=== PATIENT | male | born 1985 | race Caucasian/White ===

== ENCOUNTER 2023-09-24 17:11 | Emergency (ER) | payer SELFPAY ==
[2023-09-24 17:13] VITALS: BP 146/90
[2023-09-24 17:27] LABS: % Basophils 0.4 % (0-2); % Eosinophils 1.1 % (0-6); % Immature Granulocytes 0.4 % (0-0.5); % Lymphocytes 13.8 % (20.5-51.1); % Monocytes 6.4 % (1.7-9.3); % Neutrophils 77.9 % (42.2-75.2); Absolute Basophils 0.1 10^3/uL (0-0.2); Absolute Eosinophils 0.2 10^3/uL (0-0.7); Absolute Immature Granulocytes 0.1 10^3/uL (0-0.05); Absolute Lymphocytes 1.9 10^3/uL (1.2-3.4); Absolute Monocytes 0.9 10^3/uL (0.1-0.6); Absolute Neutrophils 10.9 10^3/uL (1.4-6.5); Hemoglobin 15.1 g/dL (13.0-18.0); Mean Corp Hgb Conc. 35.1 g/dL (33.0-37.0); Mean Corpuscular Hgb 28.2 pg (27.0-31.0); Mean Corpuscular Volume 80.2 fL (80.0-94.0); Mean Platelet Volume 8.9 fL (7.4-10.4); Nucleated Red Blood Cells % 0 % (-); Platelet Count 332 10^3/uL (130-400); Red Blood Cell Count 5.36 10^6/uL (4.70-6.10); Red Cell Dist. Width 13.3 % (11.5-14.5); White Blood Cell Count 13.9 10^3/uL (4.8-10.8)
[2023-09-24 17:48] LABS: ALT (SGPT) 52 U/L (0-50); AST (SGOT) 42 U/L (17-59); Albumin 4.9 g/dl (3.5-5.0); Alkaline Phosphatase 85 U/L (38-126); Blood Urea Nitrogen 18 mg/dl (9-20); Calcium 10.4 mg/dl (8.4-10.2); Carbon Dioxide 24 mmol/L (22-30); Chloride 103 mmol/L (98-107); Glucose 88 mg/dl (70-99); Sodium 140 mmol/L (135-145); Total Bilirubin 1.2 mg/dl (0.2-1.3); eGFR > 60.00
--- NOTE | 2023-09-24 18:42 | ED.SKININJ ---
HPI-Injury
General
Chief Complaint: Skin Problem
Source: patient
Exam Limitations: none
Time Seen by Provider: 09/24/23 18:33
History of Present Illness-Injury
Initial Injury comments:
38-year-old male otherwise healthy presents with pain redness and swelling to the left shoulder area. He felt a stinging sensation earlier this morning in this area and since then has become more red. He developed chills throughout the day as well
as achiness. No other complaints at this time
Phy Exam
Physical Exam
Physical Exam:
General: Well-appearing male no acute respiratory distress
HEENT: Normocephalic neck is supple no adenopathy
Skin: Erythema with central eschar. Eschar measures about 0.5 cm. No underlying fluctuance. No drainage. This is slightly tender. Diameter of erythema is about 8 cm.
Musculoskeletal exam no nuchal rigidity or meningeal signs
Course
Orders/Labs/Results
Orders:
Orders
09/24/23 17:21
CMP [Comprehensive Metabolic Panel] Urgent
Complete Blood Count/With Diff Urgent
09/24/23 18:38
Doxycycline [Vibramycin] 100 mg PO NOW STA
Abnormal Lab Results
09/24/23
17:21
WBC 13.9 H 10^3/uL
(4.8-10.8)
Abs Immat Gran (auto) 0.1 H 10^3/uL
(0-0.05)
Absolute Neuts (auto) 10.9 H 10^3/uL
(1.4-6.5)
Absolute Monos (auto) 0.9 H 10^3/uL
(0.1-0.6)
Neutrophils % 77.9 H %
(42.2-75.2)
Lymphocytes % 13.8 L %
(20.5-51.1)
Calcium 10.4 H mg/dl
(8.4-10.2)
ALT 52 H U/L
(0-50)
09/24/23 17:21
09/24/23 17:21
Vital Signs
Initial and Last Documented VS:
Initial Vital Signs
Temp Pulse Resp BP Pulse Ox
98.1 F 100 16 146/90 99
09/24/23 17:13 09/24/23 17:13 09/24/23 17:13 09/24/23 17:13 09/24/23 17:13
Last Documented Vital Signs
Temp Pulse Resp BP Pulse Ox
98.1 F 100 16 146/90 99
09/24/23 17:13 09/24/23 17:13 09/24/23 17:13 09/24/23 17:13 09/24/23 17:13
MDM/Problems Addressed
Differential Diagnosis Includes:
Area of induration and erythema to the left upper back. No palpable fluid collection that would suggest an abscess. Consider cellulitis versus insect bite. Patient overall looks nontoxic no fever here. Will cover with doxycycline. Recommended
protection from the sun. Return precautions were given.
*Critical Care Note
Total Time (30-74mins, 75-104mins- exclusive of procedures): Not Applicable
ED Attending Note
-
Portions of this chart may have been created with voice recognition software.� Occasional wrong word or��sound alike� substitutions may have occurred due to the inherent limitations of voice recognition software.
Discharge Plan
Departure
Patient Disposition: Home (Routine Discharge)
Date of Disposition: 09/24/23
Time of Disposition: 18:45
Patient with high blood pressure during this ER visit?: No
Discharge Problem:
Insect bite, Cellulitis
Instructions: Cellulitis (Skin Infection), Adult (DC)
Prescriptions:
New
doxycycline hyclate 100 mg capsule
100 mg PO BID Qty: 14 0RF
Referrals:
NONE,* [Family Provider] -
Activity Restrictions/Additional Instructions:
Take antibiotics as directed. Please return here for increasing redness swelling pain onset of fever or other concerning finding. Keep yourself protected from the sun while on the antibiotic.
Interventions
Interventions:
*General Assessment Last Done: 09/24/23 17:13
*ED COVID-19 Vaccine History Last Done: 09/24/23 17:13
Discharge Date and Time
Print Language: DIVEHI
[2023-09-24] MEDS: VIBRAMYCIN 100 MG PO (18:57)
== END 2023-09-24 19:03 | disposition home or self-care (01) ==
LOC: EMR 17:11
PROVIDERS: Emergency Medicine; EMERGENCY PHYSICIAN Emergency Medicine
DX: L03.114 Cellulitis of left upper limb (principal); S40.262A Insect bite (nonvenomous) of left shoulder, initial encounter; W57.XXXA Bitten or stung by nonvenomous insect and other nonvenomous arthropods, initial encounter
CPT/HCPCS: 99283; 80053; 85025

== ENCOUNTER 2025-03-03 16:58 | Inpatient (IN) | payer OTHER, SELFPAY ==
[2025-03-03 11:57] VITALS: BP 141/78
[2025-03-03 12:12] VITALS: BMI 38.6
[2025-03-03 12:19] VITALS: BMI 36.8
--- NOTE | 2025-03-03 12:38 | ED.SKININJ ---
HPI-Injury
<Viviana Khoury MICA SPLITTER - Last Filed: 03/03/25 17:35>
General
Chief Complaint: Skin Problem
Source: patient
Exam Limitations: none
Time Seen by Provider: 03/03/25 12:16
Nursing documentation reviewed up to this point in time: agreed with
History of Present Illness-Injury
Initial Injury comments:
39-year-old male being treated with IV vancomycin and ceftriaxone 1 g twice daily at the [facility] for the past 4 days presents with worsening wound R medial mid calf. States he also had fever 102 past two days and has been given Tylenol
and ibuprofen for fevers. Denies n/v. States burning in throat and like indigestion points up and down mid chest started 2 days ago.
Past History
<Viviana Khoury, MICA SPLITTER - Last Filed: 03/03/25 17:35>
Past History
ED Past Medical History: Other (remote PE)
ED Past Surgical History: Orthopedic
Review of Systems
<Viviana Khoury, MICA SPLITTER - Last Filed: 03/03/25 17:35>
Review of Systems
Allergies reviewed?: Yes
All Other Systems: ROS reviewed and negative except as documented in HPI and ROS
Constitutional: Reports fever and chills
Respiratory: Denies trouble breathing
Cardiac: Reports chest pain ('burning' pointing up and down mid chest)
ABD/GI: Denies abdominal pain, nausea, vomiting or diarrhea
Skin: Reports other (worsening wound R lower extremitiy)
Phy Exam
<Viviana Khoury, MICA SPLITTER - Last Filed: 03/03/25 17:35>
Physical Exam
Physical Exam:
GENERAL: No acute distress. A&Ox3.
CONSTITUTIONAL: Afebrile.
EYES: clear, conjunctivae normal
ENMT: moist mucus membranes, Pharynx nl
RESPIRATORY: Regular respirations, nonlabored, lungs clear.
CARDIOVASCULAR: Regular rate and rhythm, no murmurs, no rubs.
GI: Soft, nontender, normal BS
MUSCULOSKELETAL: Moves with ease. Well perfused.
SKIN: Warm, dry, pink. 10 x 10 cm reddened area with 2 x 1 cm open wound with yellow eschar in center with dark eschar around the rim
PSYCH: Normal mood and affect. Well kept, interactive and appropriate
NEUROLOGIC: Awake, alert and oriented. No focal neurological deficits
Course
<Viviana Khoury MICA SPLITTER - Last Filed: 03/03/25 17:35>
Orders/Labs/Results
Orders:
Orders
03/03/25 12:38
Complete Blood Count/With Diff Urgent
Comprehensive Metabolic Panel Urgent
Vancomycin Random Urgent
03/03/25 13:10
Electrocardiogram (*1) Urgent
Reason for Study: Other
Other Reason for Exam: Indigestion like pain
EKG- Treatment ONCE
03/03/25 13:11
Lactic Acid Urgent
Wound Culture [Wound/Abscess/Other Culture] Urgent
KARIME Source: Abscess
Specimen Description:
Date Specimen was Collected: 03/03/25
Time Specimen was Collected: 13:08
Comment: R lower leg
03/03/25 13:13
Blood Culture Urgent
KARIME Source: Blood/Venous
Specimen Description:
03/03/25 13:47
US Periph Venous LOWER Ext RT Urgent
Comment:
Reason For Exam: swelling, wound RLE
03/03/25 13:49
Blood Culture Urgent
KARIME Source: Blood/Venous
Specimen Description:
03/03/25 15:29
Ketorolac [Toradol] 15 mg IV NOW STA
03/03/25 16:34
Admit/Transfer Patient As Directed
Co-Sign Provider:
Level of Care: Inpatient admission
Assign to:: Medical/Surgical
Physician / Group: Hospitalist
Transfer to: Medical/Surgical
Diagnosis: Nonhealing wound
Reason for Hospitalization: Nonhealing wound
Expected length of stay greater than two midnights?: Yes
ELOS- Estimated Length of Stay in days: 3
I certify the patient meets the requirements for IP care: Yes
03/03/25 16:35
PRN Pain Medication Management As Directed
May give lesser potent ordered pain med per pt: Yes
preference::
Protocol:: Medication orders for pain may be administered in a
manner that supports deferring to patient preference
when the pt is:
- Requesting an ordered lesser potent pain medication.
Least to most potent pain medications are defined
as: acetaminophen < NSAID < tramadol < opioids
(morphine, oxycodone, hydromorphone).
- Requesting a lesser dose of the same medication IF
ORDERED.
- Requesting a less intrusive route of administration
if both routes are prescribed by the provider (PO <
IV).
03/03/25 16:40
Code Status As Directed
Resuscitation Status: Full Code
Abnormal Lab Results
03/03/25
12:38
Immature Gran % 0.6 H %
(0-0.5)
BUN 5 L mg/dl
(9-20)
03/03/25 12:38
03/03/25 12:38
Vital Signs
Initial and Last Documented VS:
Initial Vital Signs
Temp Pulse Resp BP Pulse Ox
98.2 F 89 16 141/78 98
03/03/25 11:57 03/03/25 11:57 03/03/25 11:57 03/03/25 11:57 03/03/25 11:57
Last Documented Vital Signs
Temp Pulse Resp BP Pulse Ox
98.2 F 76 16 130/71 97
03/03/25 11:57 03/03/25 17:16 03/03/25 17:23 03/03/25 17:16 03/03/25 17:16
Line Repairer consulted with Physician
Line Repairer consulted with physician?: Yes
Name of Physician Consulted: Dr. Michelle
<Shai Michelle MD - Last Filed: 03/03/25 13:50>
Orders/Labs/Results
Orders:
Orders
03/03/25 12:38
Complete Blood Count/With Diff Urgent
Comprehensive Metabolic Panel Urgent
Vancomycin Random Urgent
03/03/25 13:10
Electrocardiogram (*1) Urgent
Reason for Study: Other
Other Reason for Exam: Indigestion like pain
EKG- Treatment ONCE
03/03/25 13:11
Lactic Acid Urgent
Wound Culture [Wound/Abscess/Other Culture] Urgent
KARIME Source: Abscess
Specimen Description:
Date Specimen was Collected: 03/03/25
Time Specimen was Collected: 13:08
Comment: R lower leg
03/03/25 13:13
Blood Culture Urgent
KARIME Source: Blood/Venous
Specimen Description:
03/03/25 13:47
US Periph Venous LOWER Ext RT Urgent
Comment:
Reason For Exam: swelling, wound RLE
03/03/25 13:49
Blood Culture Urgent
KARIME Source: Blood/Venous
Specimen Description:
03/03/25 15:29
Ketorolac [Toradol] 15 mg IV NOW STA
03/03/25 16:34
Admit/Transfer Patient As Directed
Co-Sign Provider:
Level of Care: Inpatient admission
Assign to:: Medical/Surgical
Physician / Group: Hospitalist
Transfer to: Medical/Surgical
Diagnosis: Nonhealing wound
Reason for Hospitalization: Nonhealing wound
Expected length of stay greater than two midnights?: Yes
ELOS- Estimated Length of Stay in days: 3
I certify the patient meets the requirements for IP care: Yes
03/03/25 16:35
PRN Pain Medication Management As Directed
May give lesser potent ordered pain med per pt: Yes
preference::
Protocol:: Medication orders for pain may be administered in a
manner that supports deferring to patient preference
when the pt is:
- Requesting an ordered lesser potent pain medication.
Least to most potent pain medications are defined
as: acetaminophen < NSAID < tramadol < opioids
(morphine, oxycodone, hydromorphone).
- Requesting a lesser dose of the same medication IF
ORDERED.
- Requesting a less intrusive route of administration
if both routes are prescribed by the provider (PO <
IV).
03/03/25 16:40
Code Status As Directed
Resuscitation Status: Full Code
Abnormal Lab Results
03/03/25
12:38
Immature Gran % 0.6 H %
(0-0.5)
BUN 5 L mg/dl
(9-20)
03/03/25 12:38
03/03/25 12:38
Vital Signs
Initial and Last Documented VS:
Initial Vital Signs
Temp Pulse Resp BP Pulse Ox
98.2 F 89 16 141/78 98
03/03/25 11:57 03/03/25 11:57 03/03/25 11:57 03/03/25 11:57 03/03/25 11:57
Last Documented Vital Signs
Temp Pulse Resp BP Pulse Ox
98.2 F 76 16 130/71 97
03/03/25 11:57 03/03/25 17:16 03/03/25 17:23 03/03/25 17:16 03/03/25 17:16
<Viviana Khoury MICA SPLITTER - Last Filed: 03/03/25 17:35>
MDM/Problems Addressed
Differential Diagnosis Includes:
non healing wound, brown recluse spider bite, antibiotic resistant infection
MDM/Problems Addressed:
39-year-old male being treated with IV vancomycin and ceftriaxone 1 g twice daily at the [facility] for the past 4 days presents with worsening wound R medial mid calf. States he also had fever 102 past two days and has been given Tylenol
and ibuprofen for fevers. Denies n/v. States burning in throat and like indigestion points up and down mid chest started 2 days ago.
Afebrile, NAD
Pt with non healing, mildly worsening wound RLE
Also with reported fever of 102 for the past 2 days
Wound culture results pending
Blood cultures pending
CBC, CMP normal
Vancomycin random level 9.0 ug/mL
Pt totally non toxic appearing, no lymphangitis, afebrile here. Case discussed with Dr. Michelle who examined pt and agrees with admission.
Dx: Cellulitis, open wound RLE
3:30 p.m.
Ultrasound negative for DVT
Hospitalist notified of admission
<Viviana Khoury MICA SPLITTER - Last Filed: 03/03/25 17:35>
*Pulse Oximetry
SaO2: 98
Oxygen Mode of Delivery: Room air
Patient hypoxic: no
*Critical Care Note
Total Time (30-74mins, 75-104mins- exclusive of procedures): Not Applicable
ED Attending Note
<Viviana Khoury MICA SPLITTER - Last Filed: 03/03/25 17:35>
-
Portions of this chart may have been created with voice recognition software.� Occasional wrong word or��sound alike� substitutions may have occurred due to the inherent limitations of voice recognition software.
<Shai Michelle MD - Last Filed: 03/03/25 13:50>
ED Attending Note
Patient seen and examined by attending physician: Yes
I performed the substantive portion of visit, reviewed & personally made and approve the management plan that is documented in note by myself or NICOLAS.: Yes
ED Attending Note:
39-year-old male ongoing wound to the right lower leg. Has been on IV vancomycin and ceftriaxone no improvement over the last 4 days and in fact patient feels that is getting mildly worse. Some fever there. Does not do IV drugs. No trauma.
On exam patient is nontoxic. Stable vital signs. Warm and dry. Perfusing well. No respiratory distress. Right leg with significant swelling. Erythema and an open necrotic appearing wound to the right medial proximal tib-fib area. Good distal
pulses and color.
Impression cellulitis open wound to the right medial leg. Being treated well as an outpatient but clearly not improving. Warrants inpatient management. Questionable brown recluse bite. Will also get an ultrasound to rule out DVT
Discharge Plan
Departure
Patient Disposition: Admit
Date of Disposition: 03/03/25
Time of Disposition: 13:51
Admit to: Med/Surg
Presentation/result/management discussed w/ accepting MD/DO: Hospitalist
Condition: Fair
Discharge Problem:
Non-healing wound of right lower extremity
Interventions
Interventions:
*Risk Screen - Suicide Last Done: 03/03/25 12:06
*General Assessment Last Done: 03/03/25 12:06
*Neglect/Abuse Screening Last Done: 03/03/25 12:06
*ED- Fall Risk Assessment Last Done: 03/03/25 12:07
*ED COVID-19 Vaccine History Last Done: 03/03/25 12:07
*ED Influenza Vaccine History Last Done: 03/03/25 12:07
ED-Skin Assessment Last Done: 03/03/25 13:55
[2025-03-03 12:50] LABS: Hematocrit 39.7 % (39.0-52.0); Hemoglobin 13.5 g/dL (13.0-18.0); Mean Corp Hgb Conc. 34.0 g/dL (33.0-37.0); Mean Corpuscular Volume 84.5 fL (80.0-94.0); Nucleated Red Blood Cells % 0 % (-); Platelet Count 300 10^3/uL (130-400); Red Cell Dist. Width 12.6 % (11.5-14.5)
[2025-03-03 13:09] LABS: ALT (SGPT) 34 U/L (0-50); AST (SGOT) 24 U/L (17-59); Albumin 4.0 g/dl (3.5-5.0); Alkaline Phosphatase 66 U/L (38-126); Blood Urea Nitrogen 5 mg/dl (9-20); Calcium 9.0 mg/dl (8.4-10.2); Carbon Dioxide 29 mmol/L (22-30); Chloride 106 mmol/L (98-107); Estimated Creatinine Clearance > 125 ml/min; Glucose 88 mg/dl (70-99); Potassium 4.4 mmol/L (3.5-5.1); Sodium 138 mmol/L (135-145); Total Protein 7.2 g/dl (6.3-8.2); eGFR > 60.00
[2025-03-03 13:55] VITALS: BP 114/73
[2025-03-03 15:20] VITALS: BP 128/67
[2025-03-03] MEDS: TORADOL 15 MG IV (15:44)
--- NOTE | 2025-03-03 15:50 | EDRN ---
Central area where it is draining was covered lightly w/ ABD at this time. Pt awaiting to be seen by hospitalist and after seen will better dress area.
--- NOTE | 2025-03-03 16:32 | EDRN ---
Hospitalist (Dr. Champagne Resident MD) in room w/pt at this time.
--- NOTE | 2025-03-03 16:51 | HPS.HSE ---
Addendum entered and electronically signed by Faizan Dahl MD 03/03/25 18:06:
This is an addendum to H&P written by Neha Mims on 03/03/2025. �Patient seen and examined independently with resident.
39-year-old male past medical history of opioid use disorder, constipation, pulmonary embolism x 2, presenting from snf with nonhealing wound 4 days ago right medial side of the doll with pain. �Thinks he was bitten 4 days ago. �Temperature of
102. �He was started on vancomycin/ceftriaxone in the present.
Vital signs unremarkable.
Labs unremarkable. �Venous ultrasound shows no evidence of DVT. �Superficial calf and ankle edema.
Patient with infected right doll wound not improving on vancomycin/ceftriaxone. �Check wound culture, blood cultures. �Change antibiotics to vancomycin/Zosyn. �ID consulted. �Toradol for pain.
Original Note:
Family Physician
-
Family Physician: Facility [facility]. [facility]
Chief Complaint
-
Nonhealing wound
History of Present Illness
39-year-old male with history of opioid use disorder on Suboxone for past 6 months , constipation, PE x 2 presents with nonhealing wound right doll from [facility]. Patient notes that 4 days ago he woke up and saw a bite mary in his right
lower extremity. The wound increased in size, more painful, had a oral temp of 102F. He was treated with IV vancomycin and rocephin, started 2 days ago, in snf without improvement. He reports of having a similar wound on his back a year ago
which was treated with oral antibiotics. He has past history of provoked PE, first in 2014 and the second episode 2020 for which he was on Xarelto. He is no longer on Xarelto since in snf x 6 months. He is on aspirin now.
Medical History
Past Medical History
Past Medical History: Reports Other (Constipation, PE x 2 (2014,2020), opioid use disorder in remission)
Past Surgical History: Reports Other (spine surgery )
Social History
Tobacco: Former Smoker
Alcohol: None
Drug: Former User and Narcotics
Living: Alf
Family History
Family History: Diabetes (dad)
Allergies / Home Medications
Allergies reflects when Allergies were last updated in [employer].
Home Medications with original date entered in [employer]
Allergy/Medication List:
Allergies
Allergy/AdvReac Type Severity Reaction Status Date / Time
No Known Allergies Allergy Verified 03/03/25 11:57
Home Medications
acetaminophen 325 mg tablet 650 mg PO TIDPRN PRN MILD PAIN 03/03/25
aspirin 81 mg chewable tablet 81 mg PO DAILY 03/03/25
bisacodyl 5 mg tablet 10 mg PO DAILYPRN PRN constipation 03/03/25
buprenorphine 300 mg/1.5 mL solution,exten.rel.subcutaneous syringe (Sublocade) 300 mg SC QMONTH opioid use disorder 03/03/25
calcium polycarbophil 625 mg tablet (FiberCon) 625 mg PO BID Constipation 03/03/25
ceftriaxone 1 gram intravenous solution 1 g IV Q12 leg infection 03/03/25
docusate sodium 100 mg capsule (Colace) 100 mg PO BIDPRN PRN constipation 03/03/25
hydroxyzine pamoate 25 mg capsule 25 mg PO TIDPRN PRN anxety 03/03/25
ibuprofen 400 mg tablet 400 mg PO BIDPRN PRN moderate pain 03/03/25
polyethylene glycol 3350 17 gram oral powder packet (Miralax) 17 g PO DAILYPRN PRN CONSTIPATION 03/03/25
vancomycin 1.25 gram intravenous solution 1.25 g IV Q12H leg infection 03/03/25
Review of Systems
-
History Source: Patient
A 12 point ROS was completed and negative except as noted: Yes
Physical Exam
Vital Signs
Vital Signs
Temp Pulse Resp BP Pulse Ox
98.2 F 76 16 128/67 99
03/03/25 11:57 03/03/25 15:20 03/03/25 15:20 03/03/25 15:20 03/03/25 15:20
Physical Exam
General: Comfortable and Conversant
HEENT: NormoCephalic and Anicteric
Respiratory: Clear
Cardiac: S1/S2 and Regular Rhythm
GI: Soft, Non Tender and Non Distended
Musculoskeletal: Edema, Right Lower Extremity
Skin: Warm (2x1cm open wound with yellow eschar in center, darkening around the rim, surrounding mild erythema, swelling, + moderate tender)
Neuro: AO x 3
Hematologic/Lymphatic: No Lymphadenopathy
Psych: Calm
Laboratory Results
-
03/03/25 12:38
03/03/25 12:38
Laboratory Results
Lactic Acid 1.4 mmol/L (0.7-2.0) 03/03/25 13:11
Total Bilirubin 0.4 mg/dl (0.2-1.3) 03/03/25 12:38
AST 24 U/L (17-59) 03/03/25 12:38
ALT 34 U/L (0-50) 03/03/25 12:38
Alkaline Phosphatase 66 U/L (38-126) 03/03/25 12:38
Data Reviewed
-
Ultrasound: Report Reviewed by me and Discussed with Physician
Lab Data: Labs Reviewed by me and Discussed with Physician
Impression/Plan
-
IMPRESSION:
Right doll wound
Right doll cellulitis
History of opioid use disorder in remission
History of constipation
History of pulmonary embolus
PLAN:
Right doll wound
Right doll cellulitis
Afebrile, normal white count
Suspect spider bite vs wasp bite vs scorpion bite ?
Failed IV antibiotics treatment in snf
Start Zosyn, continue vancomycin
IV Toradol, ibuprofen, Tylenol as needed for pain control
Check wound culture
Check blood culture
Consult infectious disease
Wound care
History of opioid disorder in remission
On Suboxone for 6 months
NSAIDs, Tylenol for pain control
Hold aspirin
History of constipation
Continue home bowel regime
History of pulmonary embolism
provoked PE in 2014 and 2020
Not on AC
hold aspirin
Full code
Lovenox
Regular diet
[2025-03-03 17:16] VITALS: BP 130/71
[2025-03-03 17:45] VITALS: BP 143/86
[2025-03-03] MEDS: ZOSYN 50 IV (19:48)
[2025-03-03] MEDS: LOVENOX 40 MG SC (19:52)
--- NOTE | 2025-03-03 20:00 | PHA.VAN.IN ---
Assessment
- Assessment
Renal Function: Appears similar to baseline
Concomitant Antimicrobials: PIPERACILLIN/TAZO
AUC Dosing Plan
- Dosing Variables
Dosing Weight (kg): 133.5
Dosing CrCl (ml/min): 125
Vd coefficient (L/kg): 0.6
- Empiric Dosing
Initial / Loading Dose: VANCOMYCIN 1250 MG IV Q12H prior to admit last dose 03/02 w. Random 9 ~1230
Maintenance Regimen: VANCOMYCIN 1000 MG IV Q8H
Estimated AUC (mcg*h/mL): 365
Estimated Peak (mcg*h/mL): 21.6
Estimated Trough (mcg/ml): 10.1
Estimated Half Life (H): 6.4
Pharmacokinetics Vancomycin I
- -
Patient Age: 39
Patient Sex: Male
Indication: Skin And Soft Tissue
Requesting Provider: Dr Mahi Solomon (Resident)
Height / Weight:
Height 6 ft 3 in
Actual Weight 133.5 kg
Pertinent Past Medical History: Worsening R medial mid calf wound on vanco/ceftriaxone prior to admission.
- Vital Signs / Lab Results
Temp Pulse Resp BP Pulse Ox
97.8 F 77 18 143/86 99
03/03/25 17:45 03/03/25 17:45 03/03/25 17:45 03/03/25 17:45 03/03/25 17:45
Lab Results - Hematology
03/03/25
12:38
WBC 6.3
Lab Results - Chemistry
03/03/25
12:38
BUN 5 L
Creatinine 0.7
Estimated Creat Clear > 125
Albumin 4.0
03/03/25
13:11
Lactic Acid 1.4
Microbiology Results
03/03/25 13:11 Gram Stain - Preliminary
Abscess
[2025-03-03] MEDS: VANCOCIN 200 IV (20:35)
[2025-03-03] MEDS: TYLENOL 650 MG PO (20:42)
[2025-03-03] MEDS: MOTRIN 400 MG PO (22:39)
[2025-03-03 23:27] VITALS: BP 136/84
[2025-03-04] MEDS: ZOSYN 50 IV ×2 (02:57→09:43)
[2025-03-04] MEDS: TYLENOL 650 MG PO (03:38)
[2025-03-04] MEDS: VANCOCIN 200 IV ×3 (05:52→21:35)
[2025-03-04 07:25] VITALS: BP 144/71
[2025-03-04 07:38] LABS: Hematocrit 38.0 % (39.0-52.0); Hemoglobin 12.9 g/dL (13.0-18.0); Mean Corp Hgb Conc. 33.9 g/dL (33.0-37.0); Mean Corpuscular Volume 84.4 fL (80.0-94.0); Nucleated Red Blood Cells % 0 % (-); Platelet Count 300 10^3/uL (130-400); Red Cell Dist. Width 12.6 % (11.5-14.5)
--- NOTE | 2025-03-04 07:49 | PHA.VAN.FU ---
Vancomycin Assessment / Plan
- Assessment
Renal Function: Stable
WBC's are: WNL
In the past 24 hrs, patient has been: Afebrile
Concomitant Antimicrobials: zosyn
- Dosing Plan
Continue: 1000mg q8h
- Monitoring Plan
No level(s) ordered at this time: consider for steady state
- Follow Up
Pharmacy will continue to follow.
Vancomycin Follow UP
- -
Patient Age: 39
Patient Sex: Male
Vancomycin Day #: 2
Indication: Skin And Soft Tissue
Requesting Provider: Dr Mahi Solomon (Resident)
Height / Weight:
Height 6 ft 3 in
Actual Weight 133.5 kg
Pertinent Past Medical History: Worsening R medial mid calf wound on vanco/ceftriaxone prior to admission.
- Vital Signs / Lab Results
Temp Pulse Resp BP Pulse Ox
98.1 F 68 18 136/84 98
03/03/25 23:27 03/03/25 23:27 03/03/25 23:27 03/03/25 23:27 03/03/25 23:27
Lab Results - Hematology
03/03/25 03/04/25
12:38 07:03
WBC 6.3 6.6
Lab Results - Chemistry
03/03/25
12:38
BUN 5 L
Creatinine 0.7
Estimated Creat Clear > 125
Albumin 4.0
03/03/25
13:11
Lactic Acid 1.4
Microbiology Results
03/03/25 13:11 Gram Stain - Preliminary
Abscess
Therapeutic Drug Monitoring
Vancomycin Trough Cancelled 03/03/25 12:24
Random Vancomycin 9.0 ug/ml 03/03/25 12:38
[2025-03-04 08:16] LABS: Blood Urea Nitrogen 8 mg/dl (9-20); Calcium 8.9 mg/dl (8.4-10.2); Carbon Dioxide 29 mmol/L (22-30); Chloride 104 mmol/L (98-107); Estimated Creatinine Clearance > 125 ml/min; Glucose 100 mg/dl (70-99); Potassium 4.2 mmol/L (3.5-5.1); Sodium 136 mmol/L (135-145); eGFR > 60.00
--- NOTE | 2025-03-04 09:16 | W.PN.HOSP.TC ---
Today's Communication/Plan
-
see A/P
Assessment / Plan
Assessment / Plan
HPI: 39-year-old male past medical history of opioid use disorder on Suboxone for past 6 months, constipation, pulmonary embolism x 2, from shelter; p/w nonhealing wound of right medial doll, associated with pain. �Pt thinks he was bitten 4 days ago
DRILLER PORTABLE. �
He was started on vancomycin/ceftriaxone in the shelter.
Vital signs unremarkable. Labs unremarkable.
Venous ultrasound shows no evidence of DVT. �Superficial calf and ankle edema.
A/P:
# Right doll wound / Right doll cellulitis
? insect bite
RLE US negative for DVT
Failed IV antibiotics vancomycin/ceftriaxone treatment in shelter
Cont Zosyn, vancomycin
Follow wound culture
Follow blood culture
Pain control with IV Toradol, ibuprofen, Tylenol as needed
IV Protonix while on IV Toradol
ID CS
Wound care
# History of opioid disorder in remission, on Suboxone for 6 months
NSAIDs, Tylenol for pain control
Hold aspirin
# History of constipation
Continue home bowel regime
# History of pulmonary embolism, provoked PE in 2014 and 2020
Not on AC
hold aspirin
Full code
DVT pxp: Lovenox SQ
Anticipated Discharge: 24 - 48 hours
Subjective/Interval History
-
Date of Service: March 04, 2025
Objective Data
-
Labs:
Laboratory Results
03/04/25
07:03
WBC 6.6
Hgb 12.9 L
Hct 38.0 L
Plt Count 300
Sodium 136
Potassium 4.2
Chloride 104
Carbon Dioxide 29
BUN 8 L
Creatinine 0.8
Glucose 100 H
Calcium 8.9
Vital Signs:
Vital Signs
Temp Pulse Resp BP Pulse Ox
36.6 C 59 16 144/71 97
03/04/25 07:25 03/04/25 07:25 03/04/25 07:25 03/04/25 07:25 03/04/25 07:25
I&O
03/03/25 03/04/25 03/05/25
06:59 06:59 06:59
Intake Total 960 / 960
Output Total 1825 / 1825
Balance -865 / -865
Review of Systems
-
History Source: Patient
Skin: Reports Other (R medial leg wound )
Physical Exam
-
General: Well Developed, Well Nourished, No Apparent Distress, Comfortable and Conversant; Negative Respiratory Distress
HEENT: Normocephalic, Atraumatic, Nose Appears Normal and Ears Appear Normal; Negative Oxygen
Respiratory: Clear to Auscultation and Non Labored Respirations; Negative Accessory Resp Muscle Use
Cardiac: Regular Rhythm and S1/S2
GI: Soft, Nontender, Nondistended and Normal Bowel Sounds
Skin: Lesions (R medial leg wound)
Neuro: Awake and Alert
Psych: Calm and Intact Judgement/Insight
Data Reviewed
-
Ultrasound: Report Reviewed by me
Labs: Labs Reviewed by me
[2025-03-04] MEDS: NSS (PRESERVATIVE FREE) 10 ML IV (09:43)
[2025-03-04] MEDS: PROTONIX IV 40 MG IV (09:43)
--- NOTE | 2025-03-04 11:23 | CM ---
Initial assessment completed. Patient is a 39-year-old male with history of opioid use disorder on Suboxone for past 6 months , constipation, PE x 2 presents with nonhealing wound right doll.
Patient from [facility]. Independent in all areas. No DME.
IV abx, ID ordered
WOC ordered
[facility]
Report: [phone]

Plan: Return to [facility]
--- NOTE | 2025-03-04 12:37 | CON.ID ---
Consultation
-
Date/Time Consultation Requested: 03/03/2025 1805
Date/Time Consultation Performed: 03/04/2025 1237
Requesting Provider: Dr. Champagne
Performing Provider: Dr. Zamora
Reason for Consultation: Nonhealing lower extremity wound
Chief Complaint / Past History
History of Present Illness
Joss Liu is a 39-year-old man being evaluated at the request of Dr. Champagne in regards to a nonhealing wound of the right medial calf. History is obtained from chart review, along with patient interview.
Patient is currently incarcerated [facility] and reports approximately 7 to 10 days ago he thinks he may have been bitten on the medial aspect of his upper right calf. He notes that he developed a pimple at the area
which progressed to some areas of darkening. He was started on empiric vancomycin and ceftriaxone 3 days ago, but when the area did not improve he was transferred to the hospital for further evaluation. He notes prior to transfer he was having
temps as high as 102 degrees.
On presentation, he was continued on empiric antibiotics (Zosyn, vancomycin) and a wound culture was obtained which is now been found to be positive for MRSA. Infectious Diseases asked to comment upon further antimicrobial management.
At this time he notes he is feeling somewhat improved. He notes improvement/resolution of fever. He still has pain, currently rated 6/10, down from 10/10. He denies any inguinal adenopathy. He denies any prior history of similar symptomatology.
Past History
Additional Past Medical History:
Remote PE (2014)
Additional Past Surgical History:
Spinal surgery with revision
Allergy History:
No Known Allergies Allergy (Verified 03/03/25 11:57)
Medications Reviewed: Yes
Current Antibiotics:
Vancomycin
Zosyn
Social History
Tobacco: Non-Smoker
Alcohol: None
Drug: IVDA (In remission)
Living: Longterm
Employment: Not Employed
Family History
Family History: Not Pertinent
Review of Systems
Vital Signs
Temp Pulse Resp BP Pulse Ox
98 F 59 16 144/71 97
03/04/25 07:25 03/04/25 07:25 03/04/25 07:25 03/04/25 07:25 03/04/25 07:25
Physical Exam
Physical Exam
Constitutional: No Acute Distress, Comfortable and Non-toxic
Eyes: No Conjunctival Hemorrhage and Sclera Anicteric
Cardiovascular: S1/S2; Negative S3/S4
Pulmonary: Non Labored
Gastrointestinal: Soft, Non Tender and Non Distended
Genito-Urinary: Negative Bailey
Wound: Other (Right medial calf area with a 1 cm wound with mild purulent drainage. Surrounding induration and tenderness, along with erythema. No obvious fluctuant area)
Neurological: Awake and Alert
Psychological: Calm
.
Lab / Diagnostic Study Results
03/04/25 07:03
03/04/25 07:03
Abs Immat Gran (auto) 0.1 10^3/uL (0-0.05) H 03/04/25 07:03
Absolute Neuts (auto) 3.5 10^3/uL (1.4-6.5) 03/04/25 07:03
Absolute Lymphs (auto) 2.0 10^3/uL (1.2-3.4) 03/04/25 07:03
Absolute Monos (auto) 0.5 10^3/uL (0.1-0.6) 03/04/25 07:03
Absolute Basos (auto) 0.1 10^3/uL (0-0.2) 03/04/25 07:03
Immature Gran % 0.8 % (0-0.5) H 03/04/25 07:03
Neutrophils % 53.1 % (42.2-75.2) 03/04/25 07:03
Lymphocytes % 30.9 % (20.5-51.1) 03/04/25 07:03
Monocytes % 7.0 % (1.7-9.3) 03/04/25 07:03
Eosinophils % 7.3 % (0-6) H 03/04/25 07:03
Basophils % 0.9 % (0-2) 03/04/25 07:03
Lactic Acid 1.4 mmol/L (0.7-2.0) 03/03/25 13:11
Microbiology Results
Micro:
03/03/25 13:11 Wound Culture - Preliminary
Abscess Staph aureus MRSA
Gram Stain - Preliminary
03/03/25 13:49 Blood Culture - Pending
Blood/Venous
03/03/25 13:13 Blood Culture - Pending
Blood/Venous
Assessment / Plan
Right leg MRSA cellulitis/carbuncle
Fevers
Recommendation:
Continue with vancomycin. Follow levels closely to prevent nephrotoxicity.
Discontinue further Zosyn.
K-pad to the area.
Continue with local care to the wound.
Continue with lower extremity elevation.
Await final susceptibility data. May be able to transition to oral therapy in the next 24 to 48 hours.
[2025-03-04] MEDS: TORADOL 30 MG IV ×2 (13:55→21:34)
[2025-03-04 15:30] VITALS: BP 127/71
[2025-03-04] MEDS: LOVENOX 40 MG SC (17:35)
[2025-03-04 23:00] VITALS: BP 136/79
[2025-03-05] MEDS: VANCOCIN 200 IV ×2 (05:55→13:58)
[2025-03-05 07:35] LABS: Hematocrit 37.7 % (39.0-52.0); Hemoglobin 12.8 g/dL (13.0-18.0); Mean Corp Hgb Conc. 34.0 g/dL (33.0-37.0); Mean Corpuscular Volume 84.9 fL (80.0-94.0); Platelet Count 269 10^3/uL (130-400); Red Cell Dist. Width 12.4 % (11.5-14.5)
[2025-03-05] MEDS: PROTONIX IV 40 MG IV (07:50)
[2025-03-05] MEDS: NSS (PRESERVATIVE FREE) 10 ML IV (07:50)
[2025-03-05] MEDS: TORADOL 30 MG IV ×2 (07:55→19:56)
[2025-03-05 08:26] LABS: Blood Urea Nitrogen 15 mg/dl (9-20); Calcium 8.9 mg/dl (8.4-10.2); Carbon Dioxide 28 mmol/L (22-30); Chloride 105 mmol/L (98-107); Estimated Creatinine Clearance > 125 ml/min; Glucose 104 mg/dl (70-99); Potassium 4.2 mmol/L (3.5-5.1); Sodium 136 mmol/L (135-145); eGFR > 60.00
--- NOTE | 2025-03-05 08:36 | PHA.VAN.FU ---
Vancomycin Assessment / Plan
- Assessment
Renal Function: Stable
WBC's are: Stable
In the past 24 hrs, patient has been: Afebrile
- Dosing Plan
Continue: 1000MG Q8H
- Monitoring Plan
Peak Level: 03/06 @0100
Trough Level: 03/06 @0530
- Follow Up
Pharmacy will continue to follow.
Vancomycin Follow UP
- -
Patient Age: 39
Patient Sex: Male
Vancomycin Day #: 3
Indication: Skin And Soft Tissue
Requesting Provider: Dr Mahi Solomon (Resident)
Height / Weight:
Height 6 ft 3 in
Actual Weight 133.5 kg
Pertinent Past Medical History: Worsening R medial mid calf wound on vanco/ceftriaxone prior to admission.
- Vital Signs / Lab Results
Temp Pulse Resp BP Pulse Ox
97.8 F 63 18 136/79 98
03/04/25 23:00 03/04/25 23:00 03/04/25 23:00 03/04/25 23:00 03/04/25 23:00
Lab Results - Hematology
03/03/25 03/04/25 03/05/25
12:38 07:03 07:21
WBC 6.3 6.6 8.0
Lab Results - Chemistry
03/03/25 03/04/25 03/05/25
12:38 07:03 07:21
BUN 5 L 8 L 15
Creatinine 0.7 0.8 0.7
Estimated Creat Clear > 125 > 125 > 125
Albumin 4.0
03/03/25
13:11
Lactic Acid 1.4
Microbiology Results
03/03/25 13:11 Wound Culture - Final
Abscess Staph aureus MRSA
Gram Stain - Final
03/03/25 13:49 Blood Culture - Preliminary
Blood/Venous No Growth in 24 hours- Final report to follow
03/03/25 13:13 Blood Culture - Preliminary
Blood/Venous No Growth in 24 hours- Final report to follow
Therapeutic Drug Monitoring
Vancomycin Trough Cancelled 03/03/25 12:24
Random Vancomycin 9.0 ug/ml 03/03/25 12:38
[2025-03-05 08:49] VITALS: BP 124/79
--- NOTE | 2025-03-05 09:50 | W.PN.HOSP.TC ---
Today's Communication/Plan
-
see A/P
Assessment / Plan
Assessment / Plan
HPI: 39-year-old male past medical history of opioid use disorder on Suboxone for past 6 months, constipation, pulmonary embolism x 2, from senior care; p/w nonhealing wound of right medial doll, associated with pain. �Pt thinks he was bitten 4 days ago
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 �
He was started on vancomycin/ceftriaxone in the senior care.
Vital signs unremarkable. Labs unremarkable.
Venous ultrasound shows no evidence of DVT. �Superficial calf and ankle edema.
A/P:
# Right doll wound / Right doll cellulitis
? insect bite
RLE US negative for DVT
Failed IV antibiotics vancomycin/ceftriaxone treatment in senior care
Wound culture positive for MRSA
Cont vancomycin
DCed Zosyn
Follow blood culture, so far neg
Pain control with IV Toradol, ibuprofen, Tylenol as needed
IV Protonix while on IV Toradol
ID on board
Wound care consulted
# History of opioid disorder in remission, on Suboxone for 6 months
NSAIDs, Tylenol for pain control
Hold aspirin
# History of constipation
Continue home bowel regime
# History of pulmonary embolism, provoked PE in 2014 and 2020
Not on AC
hold aspirin
Full code
DVT pxp: Lovenox SQ
Anticipated Discharge: 24 - 48 hours
Subjective/Interval History
-
Date of Service: March 05, 2025
Objective Data
-
Labs:
Laboratory Results
03/05/25
07:21
WBC 8.0
Hgb 12.8 L
Hct 37.7 L
Plt Count 269
Sodium 136
Potassium 4.2
Chloride 105
Carbon Dioxide 28
BUN 15
Creatinine 0.7
Glucose 104 H
Calcium 8.9
Vital Signs:
Vital Signs
Temp Pulse Resp BP Pulse Ox
37.2 C 59 18 124/79 94
03/05/25 08:49 03/05/25 08:49 03/05/25 08:49 03/05/25 08:49 03/05/25 08:49
I&O
03/04/25 03/05/25 03/06/25
06:59 06:59 06:59
Intake Total 960 / 960
Output Total 1825 / 1825
Balance -865 / -865
Review of Systems
-
History Source: Patient
Skin: Reports Other (R medial leg wound )
Physical Exam
-
General: Well Developed, Well Nourished, No Apparent Distress, Comfortable and Conversant; Negative Respiratory Distress
HEENT: Normocephalic, Atraumatic, Nose Appears Normal and Ears Appear Normal; Negative Oxygen
Respiratory: Clear to Auscultation and Non Labored Respirations; Negative Accessory Resp Muscle Use
Cardiac: Regular Rhythm and S1/S2
GI: Soft, Nontender, Nondistended and Normal Bowel Sounds
Skin: Lesions (R medial leg wound)
Neuro: Awake and Alert
Psych: Calm and Intact Judgement/Insight
Data Reviewed
-
Ultrasound: Report Reviewed by me
Labs: Labs Reviewed by me
--- NOTE | 2025-03-05 14:04 | W.PN.ID1 ---
Date of Service
Date of Service: March 05, 2025
Today's Communication
Transition to linezolid.
Assessment / Plan
Right leg MRSA cellulitis/carbuncle
Fevers
Recommendation:
Full sensitivities of MRSA isolate reviewed, and linezolid susceptibility noted.
Discontinue further vancomycin and transition to oral linezolid. Would continue with an additional 7 days of therapy.
Would continue with warm compresses to the area.
Continue with local care to the wound.
Continue with lower extremity elevation.
����������������������������������������������������������
Chief Complaint
-: Cellulitis
Subjective / Review of Systems
Patient seen and examined. Reports decreased discomfort in the right proximal calf area.
Review of Systems: No Fever and No Chills
Vital Signs / Physical Exam
Vital Signs
Vital Signs
Temp Pulse Resp BP Pulse Ox
98.9 F 59 18 124/79 94
03/05/25 08:49 03/05/25 08:49 03/05/25 08:49 03/05/25 08:49 03/05/25 08:49
Physical Exam
Constitutional: No Acute Distress, Comfortable and Non-toxic
Cardiovascular: S1/S2; Negative S3/S4
Pulmonary: Non Labored
Gastrointestinal: Soft and Non Tender
Wound: Other (Right medial calf wound with mild amount of drainage. Decreased overall surrounding erythema and tenderness. Decreased induration.)
Neurological: Awake and Alert
Psychological: Calm
Objective Data
Lab Data
Lab Results
03/05/25 07:21
03/05/25 07:21
Estimated Creat Clear > 125 ml/min 03/05/25 07:21
Lactic Acid 1.4 mmol/L (0.7-2.0) 03/03/25 13:11
Total Bilirubin 0.4 mg/dl (0.2-1.3) 03/03/25 12:38
AST 24 U/L (17-59) 03/03/25 12:38
ALT 34 U/L (0-50) 03/03/25 12:38
Alkaline Phosphatase 66 U/L (38-126) 03/03/25 12:38
Most recent labs reviewed.
Micro Results:
03/03/25 13:49 Blood Culture - Preliminary
Blood/Venous No Growth in 48 hours- Final report to follow
03/03/25 13:11 Wound Culture - Final
Abscess Staph aureus MRSA
Gram Stain - Final
03/03/25 13:13 Blood Culture - Preliminary
Blood/Venous No Growth in 48 hours- Final report to follow
Care Review
Plan reviewed with: Physician (Hospitalist)
--- NOTE | 2025-03-05 14:15 | CM ---
Patient medically stable for discharge
Per ID, transition to PO abx for additional 7 days
Called [facility] to inform of abx need. Spoke w/ nurse, confirmed abx will need to be ordered as they do not have it available at this time.
Provided abx, dosage and frequency info for nurse to order. No script was requested. Per nurse, either tomorrow or Thursday abx will be received
Update to attending
[facility]
Report: [phone]

Plan: Return to [facility] once they get abx
[2025-03-05 17:00] VITALS: BP 126/78
[2025-03-05] MEDS: LOVENOX SC (17:52)
[2025-03-05] MEDS: ZYVOX 600 MG PO (19:52)
[2025-03-05 23:35] VITALS: BP 124/72
[2025-03-06 07:30] VITALS: BP 123/76
[2025-03-06 08:54] LABS: Hematocrit 38.0 % (39.0-52.0); Hemoglobin 13.4 g/dL (13.0-18.0); Mean Corp Hgb Conc. 35.3 g/dL (33.0-37.0); Mean Corpuscular Volume 82.6 fL (80.0-94.0); Platelet Count 334 10^3/uL (130-400); Red Cell Dist. Width 12.2 % (11.5-14.5)
[2025-03-06 09:16] LABS: Blood Urea Nitrogen 16 mg/dl (9-20); Calcium 9.2 mg/dl (8.4-10.2); Carbon Dioxide 28 mmol/L (22-30); Chloride 104 mmol/L (98-107); Estimated Creatinine Clearance > 125 ml/min; Glucose 94 mg/dl (70-99); Potassium 4.2 mmol/L (3.5-5.1); Sodium 136 mmol/L (135-145); eGFR > 60.00
[2025-03-06] MEDS: PROTONIX IV 40 MG IV (09:27)
[2025-03-06] MEDS: ZYVOX 600 MG PO (09:28)
[2025-03-06] MEDS: NSS (PRESERVATIVE FREE) 10 ML IV (09:28)
[2025-03-06] MEDS: MIRALAX 17 GRAMS PO (09:29)
[2025-03-06] MEDS: SENOKOT-S 1 TABLET PO (09:30)
[2025-03-06] MEDS: TORADOL 30 MG IV (09:30)
--- NOTE | 2025-03-06 11:36 | CM ---
Addendum entered by Jackelyn Rollins 03/06/25 13:25:
Per Hospitalist, antibiotic switched to oral Bactrim
CM confirmed with Rachel at [facility] that antibiotic is available, patient can discharge today.
Update to Hospitalist.
Original Note:
CM reviewed chart, reviewed with Hospitalist.
Spoke with [facility], confirmed antibiotic will be in on Thursday.
Update to Hospitalist.
CM will continue to follow for d/c needs.
[facility]
Report: [phone]

Plan: Return to [facility] once antibiotic received
--- NOTE | 2025-03-06 12:06 | W.PN.HOSP.TC ---
Addendum entered and electronically signed by Moise Castillo MD 03/06/25 15:40:
Other-history of opioid use disorder now in remission
Addendum entered and electronically signed by Moise Castillo MD 03/06/25 13:32:
Discussed with infectious disease. Plan to transition patient to Bactrim. Discussed with case management who l followed -up with [facility] and they have Bactrim in stock. Thus, will dc back to [facility].
CM/RN updated.
More than 30 minutes spent in discharge including
Final examination of the patient
Summarizing hospital stay
Instructions for continuing care to all relevant caregivers
Preparation of discharge records, prescriptions, and referral forms
Total time spent (in minutes): 53
Original Note:
Today's Communication/Plan
-
now on Linezolid. Special order at [facility].
Per CM, meds wont arrive till thursday otherwise stable for dc.
Assessment / Plan
Assessment / Plan
General: Well Developed, Well Nourished, No Apparent Distress, Comfortable and Conversant; Negative Respiratory Distress
HEENT: Normocephalic, Atraumatic, Nose Appears Normal and Ears Appear Normal; Negative Oxygen
Respiratory: Clear to Auscultation and Non Labored Respirations; Negative Accessory Resp Muscle Use
Cardiac: Regular Rhythm and S1/S2
GI: Soft, Nontender, Nondistended and Normal Bowel Sounds
Skin: Lesions (R medial leg wound)
Neuro: Awake and Alert
Psych: Calm and Intact Judgement/Insight
HPI: 39-year-old male past medical history of opioid use disorder on Suboxone for past 6 months, constipation, pulmonary embolism x 2, from [facility]; p/w nonhealing wound of right medial doll, associated with pain. �Pt thinks he was bitten 4 days ago
[employer]K PLANT OPERATOR. �
He was started on vancomycin/ceftriaxone in the [facility].
Vital signs unremarkable. Labs unremarkable.
Venous ultrasound shows no evidence of DVT. �Superficial calf and ankle edema.
A/P:
#Right leg MRSA cellulitis/possible carbuncle
RLE US negative for DVT
Failed IV antibiotics vancomycin/ceftriaxone treatment in [facility]
Wound culture positive for MRSA
DCed Zosyn/vancomycin-now on Linezolid. Special order at [facility]. Per CM, meds wont arrive till thursday.
Follow blood culture, so far neg
Pain control with IV Toradol, ibuprofen, Tylenol as needed
IV Protonix while on IV Toradol
ID on board
Wound care consulted
# History of opioid disorder in remission, on Suboxone for 6 months
NSAIDs, Tylenol for pain control
Hold aspirin
# History of constipation
Continue home bowel regime
# History of pulmonary embolism, provoked PE in 2014 and 2020
Not on AC
hold aspirin
Full code
DVT pxp: Lovenox SQ
Anticipated Discharge: 24 - 48 hours
Subjective/Interval History
-
Date of Service: March 06, 2025
remains afebrile
intermittent pain but controlled IV Toradol
Objective Data
-
Labs:
Laboratory Results
03/06/25
07:53
WBC 8.0
Hgb 13.4
Hct 38.0 L
Plt Count 334 D
Sodium 136
Potassium 4.2
Chloride 104
Carbon Dioxide 28
BUN 16
Creatinine 0.8
Glucose 94
Calcium 9.2
Vital Signs:
Vital Signs
Temp Pulse Resp BP Pulse Ox
98.2 F 57 16 123/76 94
03/06/25 07:30 03/06/25 07:30 03/06/25 07:30 03/06/25 07:30 03/06/25 07:30
I&O
03/05/25 03/06/25 03/07/25
06:59 06:59 06:59
Intake Total 720 / 720
Balance 720 / 720
--- NOTE | 2025-03-06 12:30 | W.PN.ID1 ---
Date of Service
Date of Service: March 06, 2025
Today's Communication
Continue antibiotics. See below�
Assessment / Plan
Right leg MRSA cellulitis/carbuncle
Fevers
Recommendation:
Full sensitivities of MRSA isolate reviewed; linezolid and Bactrim susceptibility noted.
- Linezolid will not be available at the facility for an additional 48 hours.
Will transition to oral Bactrim DS 2 p.o. BID; continue for an additional 6 days.
Would continue with warm compresses to the area.
Continue with local care to the wound.
Continue with lower extremity elevation.
����������������������������������������������������������
Chief Complaint
-: Cellulitis
Subjective / Review of Systems
Patient seen and examined. Reports improvement in right leg discomfort. Denies fevers or chills.
Vital Signs / Physical Exam
Vital Signs
Vital Signs
Temp Pulse Resp BP Pulse Ox
98.2 F 57 16 123/76 94
03/06/25 07:30 03/06/25 07:30 03/06/25 07:30 03/06/25 07:30 03/06/25 07:30
Physical Exam
Constitutional: No Acute Distress, Comfortable and Non-toxic
Cardiovascular: S1/S2; Negative S3/S4
Pulmonary: Non Labored
Gastrointestinal: Soft and Non Tender
Wound: Other (Right medial calf wound with minimal amount of drainage. Ongoing improvement in induration, erythema and tenderness.)
Neurological: Awake and Alert
Psychological: Calm
Objective Data
Lab Data
Lab Results
03/06/25 07:53
03/06/25 07:53
Estimated Creat Clear > 125 ml/min 03/06/25 07:53
Lactic Acid 1.4 mmol/L (0.7-2.0) 03/03/25 13:11
Total Bilirubin 0.4 mg/dl (0.2-1.3) 03/03/25 12:38
AST 24 U/L (17-59) 03/03/25 12:38
ALT 34 U/L (0-50) 03/03/25 12:38
Alkaline Phosphatase 66 U/L (38-126) 03/03/25 12:38
Most recent labs reviewed.
Micro Results:
03/03/25 13:49 Blood Culture - Preliminary
Blood/Venous No Growth in 48 hours- Final report to follow
03/03/25 13:11 Wound Culture - Final
Abscess Staph aureus MRSA
Gram Stain - Final
03/03/25 13:13 Blood Culture - Preliminary
Blood/Venous No Growth in 48 hours- Final report to follow
Care Review
Plan reviewed with: Physician (Hospitalist)
--- NOTE | 2025-03-06 13:22 | PN.CDI ---
CDI
- -
CDI:
Physician Documentation Request
Admit Date: 03/03/25 16:58
Dear Doctor Jonathan,
Please review the following and provide your response in the progress notes.
Clinical Indicators:
- Patient admit for right leg cellulitis
- per H&P patient with opioid use disorder
- 03/06 PN 'History of opioid disorder in remission, on Suboxone for 6 months'
If possible, please provide further specificity as outlined below:
Opioid use with dependence
Opioid dependence
Other (please specify)
Use of terms such as suspected, likely, concern for, or probable (associated with a specific diagnosis that is being evaluated, monitored, or treated as if it exists) are acceptable and can be coded in the inpatient setting, when documented at the
time of discharge.
Thank you,
Mauricio Arguello RN
CDI Specialist
Please use your independent medical judgment in providing your response.
--- NOTE | 2025-03-06 13:31 | W.DCSUMMARY ---
Discharge Summary
Discharge Data
Date of Admission: 03/03/25
Date of Discharge: 03/06/25
-
Pending Results: No
Hospital Course
39-year-old male past medical history of opioid use disorder on Suboxone for past 6 months, constipation, pulmonary embolism x 2, from [facility]; p/w nonhealing wound of right medial doll, associated with pain. �He was started on vancomycin/ceftriaxone
in the [facility]. Patient was eval by infectious disease. Right lower extremity ultrasound was negative for DVT. Wound culture positive for MRSA. Patient was initially started on Zosyn which was transitioned to vancomycin. Wound culture
susceptibility noted. Patient was transition to Bactrim per infectious disease recommendation. Patient be discharged back to [facility].
Discharge Plan
-
Patient Disposition: Correction
Discharge Diagnosis/Procedures: Right leg wound / Right leg cellulitis
Condition: Fair
Diet: As tolerated
Activity: As tolerated
Referrals:
[facility] [Family Provider, General] - in less than 1 week
Prescriptions:
New
sulfamethoxazole-trimethoprim 800-160 mg Tablet
2 tab PO BID 6 Days Qty: 24 0RF
Continued
ibuprofen 400 mg Tablet
400 mg PO BIDPRN PRN (Reason: moderate pain)
acetaminophen 325 mg Tablet
650 mg PO TIDPRN PRN (Reason: MILD PAIN)
polyethylene glycol 3350 [Miralax] 17 gram Powder In Packet
17 g PO DAILYPRN PRN (Reason: CONSTIPATION)
calcium polycarbophil [FiberCon] 625 mg Tablet
625 mg PO BID
docusate sodium [Colace] 100 mg Capsule
100 mg PO BIDPRN PRN (Reason: constipation)
aspirin 81 mg Tablet,Chewable
81 mg PO DAILY
hydroxyzine pamoate 25 mg Capsule
25 mg PO TIDPRN PRN (Reason: anxety)
bisacodyl 5 mg Tablet
10 mg PO DAILYPRN PRN (Reason: constipation)
Sublocade 300 mg/1.5 mL Solution, Extended Rel Syringe
300 mg SC QMONTH
Discontinued
ceftriaxone 1 gram Recon Soln
1 g IV Q12
vancomycin 1.25 gram Recon Soln
1.25 g IV Q12H
Discharge Orders:
Discharge Patient (As Directed); Ordered 03/06/25
Ordered By: Moise Castillo
Discharge Date and Time
Print Language: WELSH
[2025-03-06 15:30] VITALS: BP 141/87
== END 2025-03-06 16:08 | DRG 603 ==
LOC: 4 WEST ACU 16:58
PROVIDERS: Internal Medicine; Registered Nurse; Student in an Organized Health Care Education/Training Program; ADMITTING PHYSICIAN Hospitalist; ATTENDING PHYSICIAN Hospitalist; CONSULT PHYSICIAN Internal Medicine Infectious Disease; EMERGENCY PHYSICIAN Emergency Medicine
DX: L03.115 Cellulitis of right lower limb (principal); B95.62 Methicillin resistant Staphylococcus aureus infection as the cause of diseases classified elsewhere; F11.11 Opioid abuse, in remission; Z79.82 Long term (current) use of aspirin; Z79.899 Other long term (current) drug therapy; Z86.711 Personal history of pulmonary embolism; Z87.891 Personal history of nicotine dependence
CPT/HCPCS: 80048; 80053; 80202; 83605; 85025; 85027; 87040; 87070; 87147; 87186; 87205; 93005; 93971; 96374; 99285